=== PATIENT | female | born 1975 | race Two or more races ===

== ENCOUNTER 2018-07-17 11:59 | Emergency (ER) | payer MEDICAID ==
[~2018-07-17] VITALS: Ht 157.5 cm; Wt 82.7 kg
[2018-07-17 12:10] VITALS: BP 149/84
== END 2018-07-17 15:15 | disposition home or self-care (01) ==
LOC: ER 11:59
DX: L93.0 Discoid lupus erythematosus (principal); H53.8 Other visual disturbances; Z32.02 Encounter for pregnancy test, result negative; Z88.6 Allergy status to analgesic agent
CPT/HCPCS: 70450; 81025

== ENCOUNTER 2023-06-18 14:58 | Emergency (ER) | payer MEDICAID, OTHER ==
[~2023-06-18] VITALS: Ht 154.9 cm; Wt 78.0 kg
[2023-06-18] MEDS ORDERED: HYDROcodone-ACET 10/325MG TAB PO ONE (15:30)
[2023-06-18 15:46] LABS: Basophils # (auto) 0.1 10 ^3/uL (0-0.2); Eosinophils # (auto) 0.1 10 ^3/uL (0-0.8); Hemoglobin 9.2 g/dL (12.2-16.2); Lymphocytes # (auto) 2.5 10 ^3/uL (0.4-5.4); Lymphocytes % (auto) 42.7 % (10.0-50.0); Nucleated Red Blood Cells % 0.1 %
[2023-06-18 15:49] LABS: Basophils % (auto) 1.6 % (0.0-2.0); Mean Corpuscular Hgb Conc. 29.8 g/dL (32.0-36.0); Mean Corpuscular Volume 70.3 fL (80.0-100.0); Monocytes # (auto) 0.2 10 ^3/uL (0-1.3); Monocytes % (auto) 4.2 % (0.0-12.0); Neutrophils # (auto) 2.9 10 ^3/uL (1.6-8.6); Neutrophils % (auto) 49.5 % (37.0-80.0); Red Blood Cells 4.41 10^6/uL (4.0-5.20); Red Cell Distribution Width 19.2 % (11.8-14.3); White Blood Cell 5.9 10^3/uL (4.4-10.8)
[2023-06-18 16:09] LABS: Alanine Aminotransferase 57 U/L (7-40); Albumin 4.6 g/dL (3.2-4.8); Alkaline Phosphatase 132 U/L (46-116); Anion Gap 5 (5-15); Aspartate Aminotransferase 26 U/L (13-40); BUN/Creatinine Ratio 9.9 (10.0-20.0); Bilirubin, Total 0.3 mg/dL (0.2-1.0); Blood Urea Nitrogen 8 mg/dL (9-23); Calcium 9.4 mg/dL (8.7-10.4); Carbon Dioxide 28 mmol/L (20-30); Chloride 106 mmol/L (98-107); Glucose 146 mg/dL (74-106); Potassium 4.1 mmol/L (3.5-5.1); Sodium 139 mmol/L (136-145); Total Protein 7.4 g/dL (5.7-8.2)
[2023-06-18 19:16] LABS: Urine Bacteria FEW /hpf (None Seen); Urine Blood Negative /uL (Negative); Urine Clarity Clear (Clear); Urine Color Yellow (Yellow); Urine Hyaline Cast FEW /lpf (0 - 2); Urine Protein, UAD TRACE (Negative); Urine Specific Gravity 1.025 (1.001-1.035); Urine WBC 5 /hpf (0 - 5)
[2023-06-18 22:19] LABS: COVID19 ANTIGEN SOFIA FIA NEGATIVE (NEGATIVE); Rapid Influenza A Negative (Negative); Rapid Influenza B Negative (Negative)
[2023-06-18] MEDS ORDERED: ACE3T PO ×2 (22:55)
[2023-06-18] MEDS ORDERED: NITR-87 PO ×2 (22:55)
[2023-06-19] MEDS ORDERED: cloNIDine HCL 0.1 MG TAB PO ONE (00:15)
[2023-06-19 00:19] VITALS: TEMP 98
[2023-06-19] MEDS ORDERED: HYDROmorphone HCL 2 MG/ML VL/or syr IM ONE (00:45)
[2023-06-19 00:56] VITALS: BP 148/104
[2023-06-19 01:01] VITALS: PULSE 69; RESP 16; O2SAT 99
[2023-06-19] MEDS ORDERED: ACE3T PO (01:07)
[2023-06-19] MEDS ORDERED: NITR-87 PO (01:07)
== END 2023-06-19 01:08 | disposition home or self-care (01) ==
LOC: ER 14:58
DX: B34.9 Viral infection, unspecified (principal); N39.0 Urinary tract infection, site not specified; M62.838 Other muscle spasm; L93.0 Discoid lupus erythematosus; Z86.2 Personal history of diseases of the blood and blood-forming organs and certain disorders involving the immune mechanism; Z88.8 Allergy status to other drugs, medicaments and biological substances; Z20.822 Contact with and (suspected) exposure to COVID-19
CPT/HCPCS: 36415; 70450; 71045; 72125; 80053; 81001; 85025; 87426; 87804; 96372; 99285; J1170

== ENCOUNTER 2023-06-19 17:25 | Emergency (ER) | payer OTHER ==
[~2023-06-19] VITALS: Ht 154.9 cm; Wt 79.3 kg
[~2023-06-19 17:25] MED LIST: ACE3T PO; NITR-87 PO
[2023-06-19 17:29] VITALS: BP 137/86; PULSE 63; RESP 16; O2SAT 95
[2023-06-19] MEDS ORDERED: diphenhdrAMINE HCL 50 MG/1 ML VL IV ONE (19:45)
[2023-06-19] MEDS ORDERED: PROCHLORPERAZINE EDISYLATE 5 MG/ML 2ML VIAL IV ONE (19:45)
== END 2023-06-19 21:18 | disposition left against medical advice (07) ==
LOC: ER 17:25
DX: R51.9 Headache, unspecified (principal); I10 Essential (primary) hypertension; R11.2 Nausea with vomiting, unspecified; Z53.21 Procedure and treatment not carried out due to patient leaving prior to being seen by health care provider